=== PATIENT | female | born 1990 | race Caucasian/White ===

== ENCOUNTER 2017-11-20 21:41 | Emergency (ER) ==
[2017-11-20 21:50] VITALS: BMI 28.5
--- NOTE | 2017-11-20 23:02 | CT ---
EXAM: CT chest without intravenous contrast 11/20/2017. Sagittal and coronal reformatted images obt ained HISTORY: Cough COMPARISON: None. FINDINGS: The heart size appears within normal limits. No pericardial effusion. There is no pulmonary consolidation, effusion or pneumothorax. Benign postinflammatory calcifications . Limited views of the upper abdomen shows surgical changes of cholecystectomy. IMPRESSION: No acute cardiopulmonary process.
--- NOTE | 2017-11-21 00:15 | ED.PDOC ---
General ED Provider: Dr. CALEB JEROME-ER Chief Complaint: Cough Stated Complaint: iim coughing--coughing up green yellow stuff Time Seen by Physician: 21:45 Mode of Arrival: Walk-In Information Source: Patient Exam Limitations: No limitations Nursing and Triage Documentation Reviewed and Agree: Yes Reviewed sepsis parameters & appropriate labs ordered?: Yes System Inflammatory Response Syndrome: Not Applicable Sepsis Protocol: For patient's 13 years and over: Temp is 96.8 and below OR 101 and greater Pulse >90 BPM Resp >20/minute Acutely Altered Mental Status Are patient's symptoms suggestive of a new infection, such as: -Pneumonia -Skin, Soft Tissue -Endocarditis -UTI -Bone, Joint Infection -Implantable Device -Acute Abdominal Infection -Wound Infection -Meningitis -Blood Stream Catheter Infection -Unknown Respiratory Complaint Exam - Respiratory Complaint/Exam Onset/Duration: 3 days Symptoms Are: Still present Timing: Constant Initial Severity: Mild Current Severity: Mild Location: Chest Character: Reports: Productive cough Aggravating: Reports: URI Alleviating: Reports: None Associated Signs and Symptoms: Reports: URI, Nasal congestion. Denies: Rapid breathing, Dyspnea, Fever, Chills, Chest pain, Pleuritic chest pain, Wheezing, Hemoptysis, Dizziness, Calf pain, Calf swelling, Edema, Hoarseness Related History: Reports: Similar episode History of Healthcare-Acquired Pneumonia: No Home Oxygen Use: No Recent Stress Test: No Recent Echo/LV Function: No Current Antibiotic Use: No Current Asthma Medication Use: No Respiratory Distress: None Inadequate Respiratory Effort: No Dysphagia Present: No Stridor Present: No JVD Present: No Accessory Muscle Use: No Retractions: Not Present Diminished Breath Sounds: No Sinus Tenderness: None Grunting Respirations: No Kussmaul Respirations: No Differential Diagnoses: Pneumonia, Bronchitis Review of Systems - Review Of Systems Constitutional: Reports: No symptoms Eyes: Reports: No symptoms Ears, Nose, Mouth, Throat: Reports: No symptoms Respiratory: Reports: Cough Cardiac: Reports: No symptoms GI: Reports: No symptoms : Reports: No symptoms Musculoskeletal: Reports: No symptoms Skin: Reports: No symptoms Neurological: Reports: No symptoms Endocrine: Reports: No symptoms Hematologic/Lymphatic: Reports: No symptoms All Other Systems: Reviewed and Negative Past Medical History - Past Medical History Previously Healthy: No Endocrine: Reports: Unknown Cardiovascular: Reports: Unknown Respiratory: Reports: Unknown Hematological: Reports: Unknown Gastrointestinal: Reports: Unknown Genitourinary: Reports: Unknown Neuro/Psych: Reports: Unknown Musculoskeletal: Reports: Unknown Cancer: Reports: Unknown Last Menstrual Period: 11/01/17 - Surgical History General Surgical History: Reports: Unknown - Family History Family History: Reports: Unknown - Social History Smoking Status: Never smoker Hx Substance Use: No Alcohol Screening: Occasionally - Immunizations Tetanus Shot up to Date: No (unsure) Physical Exam - Physical Exam Appearance: Well-appearing, No pain distress, Well-nourished Eyes: STACIA, EOMI, Conjunctiva clear ENT: Ears normal Neck: Supple Respiratory: Rhonchi Cardiovascular: RRR, Pulses normal, No rub, No murmur GI/: Soft Musculoskeletal: Normal strength, ROM intact, No edema, No calf tenderness Skin: Warm, Dry, Normal color Neurological: Sensation intact, Motor intact, Reflexes intact, Cranial nerves intact, Alert, Oriented Psychiatric: Affect appropriate, Mood appropriate Interpretation - Radiology Interpretation Radiology Interpretation By: Radiologist Radiology Results: Negative Exam Interpreted: CT Scan Critical Care Note - Critical Care Note Total Time (mins): 0 Course - Course Hematology/Chemistry: 11/20/17 22:39 11/20/17 22:39 Orders, Labs, Meds: Lab Review 11/20/17 11/20/17 11/20/17 21:55 22:39 22:39 WBC 7.37 RBC 4.34 Hgb 13.5 Hct 39.0 MCV 89.9 MCH 31.1 H MCHC 34.6 RDW Coeff of Roxana 12.3 Plt Count 201 Immature Gran % (Auto) 0.3 Neut % (Auto) 51.9 Lymph % (Auto) 39.1 [place] % (Auto) 6.2 Eos % (Auto) 1.8 Baso % (Auto) 0.7 Immature Gran # (Auto) 0.0 Neut # 3.8 Lymph # 2.9 [place] # 0.5 Eos # 0.1 Baso # 0.1 Sodium 142 Potassium 4.1 Chloride 108 H Carbon Dioxide 26 Anion Gap 12.1 BUN 9 Creatinine 0.84 Estimated GFR (MDRD) 81.00 BUN/Creatinine Ratio 10.71 Glucose 83 Calcium 9.2 Total Bilirubin 1.2 AST 13 L ALT 12 Alkaline Phosphatase 91 Total Protein 7.2 Albumin 3.9 Globulin 3.3 Albumin/Globulin Ratio 1.18 Influenza A (Rapid) Negative by naat Influenza B (Rapid) Negative by naat Orders Category Date Time Status BLOOD CULTURE (ED ONLY) Stat LAB 11/20/17 22:39 Received CBC W/ AUTO DIFF Stat LAB 11/20/17 22:39 Completed CMP [COMPREHENSIVE METABOLIC PANEL] Stat LAB 11/20/17 22:39 Completed FLU A/B MOLECULAR Stat LAB 11/20/17 21:55 Completed MOLECULAR GROUP A STREP Stat LAB 11/20/17 21:[address] CHEST W/O CONTRAST Stat RADS 11/20/17 22:24 Completed Vital Signs: Temp Pulse Resp BP Pulse Ox 11/20/17 21:42 99 F 88 20 119/66 97 Departure - Departure Time of Disposition: 00:14 Disposition: HOME SELF-CARE Discharge Problem: Bronchitis Instructions: Acute Bronchitis (ED) Condition: Good Pt referred to PMD for follow-up: Yes IPMP verified?: No Additional Instructions: biaxin 500mg bid x 10 days--mdp--tessalon perles 200mg tid prn cough #30-- recheck in 72hrs if not better Allergies/Adverse Reactions: Allergies Penicillins Adverse Reaction (Verified 11/20/17 21:49) Difficulty Swallowing Home Medications: Ambulatory Orders 1 [No Reported Medications] 11/20/17 Disposition Discussed With: Patient, Family
[2017-11-21 00:27] VITALS: BP 131/65; TEMP 98.5
== END 2017-11-21 00:22 | disposition home or self-care (01) ==
LOC: ED 21:41
DX: J20.9 Acute bronchitis, unspecified (principal)
CPT/HCPCS: 36415; 80053; 85025; 87040; 87502; 87651; 99283

== ENCOUNTER 2017-12-27 14:07 | Emergency (ER) ==
[2017-12-27 14:14] VITALS: BP 132/81; TEMP 98.7; BMI 28.1
[2017-12-27] MEDS ORDERED: MOTRIN PO STA (14:30)
--- NOTE | 2017-12-27 15:23 | ED.PDOC ---
General ED Provider: Dr. KHADIJAH ARIZA Chief Complaint: Respiratory Complaint Stated Complaint: Patient is a 27 year old who complains of a sore throat for few days. Also state she Jumped from a height and landed flat on her feet. Now has pain on the right fernandez. Time Seen by Physician: 14:30 Mode of Arrival: Walk-In Information Source: Patient Nursing and Triage Documentation Reviewed and Agree: Yes Reviewed sepsis parameters & appropriate labs ordered?: Yes System Inflammatory Response Syndrome: Not Applicable Sepsis Protocol: For patient's 13 years and over: Temp is 96.8 and below OR 101 and greater Pulse >90 BPM Resp >20/minute Acutely Altered Mental Status Are patient's symptoms suggestive of a new infection, such as: -Pneumonia -Skin, Soft Tissue -Endocarditis -UTI -Bone, Joint Infection -Implantable Device -Acute Abdominal Infection -Wound Infection -Meningitis -Blood Stream Catheter Infection -Unknown System Inflammatory Response Syndrome: Not Applicable Review of Systems - Review Of Systems Constitutional: Reports: No symptoms Eyes: Reports: No symptoms Ears, Nose, Mouth, Throat: Reports: No symptoms Respiratory: Reports: No symptoms Cardiac: Reports: No symptoms GI: Reports: No symptoms : Reports: No symptoms Musculoskeletal: Reports: Muscle pain, Muscle stiffness Skin: Reports: No symptoms Neurological: Reports: No symptoms Endocrine: Reports: No symptoms Hematologic/Lymphatic: Reports: No symptoms All Other Systems: Reviewed and Negative Past Medical History - Past Medical History Previously Healthy: No Endocrine: Reports: None Cardiovascular: Reports: Other (hear murmur ) Respiratory: Reports: None Hematological: Reports: Anemia Gastrointestinal: Reports: GERD Genitourinary: Reports: Kidney stones Neuro/Psych: Reports: Migraine Musculoskeletal: Reports: None Cancer: Reports: None Last Menstrual Period: na - Surgical History General Surgical History: Reports: Tubal ligation ( x w ), Cholecystectomy - Family History Family History: Reports: Unknown - Social History Smoking Status: Never smoker Hx Substance Use: No Alcohol Screening: None - Immunizations Tetanus Shot up to Date: No Physical Exam - Physical Exam Appearance: Well-appearing Ill-appearing: Mild Pain Distress: Moderate ENT: Erythema Neck: Supple Respiratory: Airway patent, Breath sounds clear, Breath sounds equal, Respirations nonlabored Cardiovascular: RRR, Pulses normal, No rub, No murmur GI/: Soft, Nontender, No masses, Bowel sounds normal, No Organomegaly Musculoskeletal: Normal strength (tenderness to palpation on the right chin) Skin: Warm, Dry, Normal color Neurological: Sensation intact, Motor intact, Reflexes intact, Cranial nerves intact, Alert, Oriented Psychiatric: Anxious Critical Care Note - Critical Care Note Total Time (mins): 0 Course - Course Orders, Labs, Meds: Orders Category Date Time Status RAPID STREP SCREEN [MOLECULAR GROUP A STREP] Stat LAB 12/27/17 14:20 Completed Ibuprofen [Motrin] MEDS 12/27/17 14:30 Discontinued 800 mg PO ONCE STA TIBIA/FIBULA, RIGHT 2 VIEW Stat RADS 12/27/17 14:31 Taken Medications Discontinued Medications Generic Name Dose Route Start Last Admin Trade Name Freq PRN Reason Stop Dose Admin Ibuprofen 800 mg 12/27/17 14:30 12/27/17 14:43 Motrin PO 12/27/17 14:31 800 mg ONCE STA Administration Vital Signs: Temp Pulse Resp BP Pulse Ox 12/27/17 14:07 98.7 F 72 16 132/81 98 Departure - Departure Time of Disposition: 15:25 Disposition: HOME SELF-CARE Discharge Problem: Fernandez splint Qualifiers: Encounter type: initial encounter Laterality: right Qualified Code(s): S86.891A - Other injury of other muscle(s) and tendon(s) at lower leg level, right leg, initial encounter Pharyngitis Qualifiers: Pharyngitis/tonsillitis etiology: other specified organisms Qualified Code(s): J02.8 - Acute pharyngitis due to other specified organisms Instructions: Pharyngitis (ED), Upper Respiratory Infection (ED) Condition: Fair Pt referred to PMD for follow-up: Yes IPMP verified?: No Additional Instructions: Take Motrin as prescribed Follow up with PCP in 3 days Prescriptions: Ibuprofen [Motrin] 600 mg PO Q6H PRN #30 tablet PRN Reason: Analgesia Allergies/Adverse Reactions: Allergies Penicillins Adverse Reaction (Verified 11/20/17 21:49) Difficulty Swallowing Home Medications: Ambulatory Orders Ibuprofen [Motrin] 600 mg PO Q6H PRN #30 tablet 12/27/17 Disposition Discussed With: Patient
--- NOTE | 2017-12-27 16:13 | DI ---
EXAM: Four views of the right tibia and fibula. History: Right lower leg trauma. Findings: No acute fracture or dislocation. No abnormal calcifications or radiopaque foreign bodies . Joint spaces are preserved. Impression: No acute osseous abnormality
== END 2017-12-27 15:41 | disposition home or self-care (01) ==
LOC: ED 14:07
DX: S86.891A Other injury of other muscle(s) and tendon(s) at lower leg level, right leg, initial encounter (principal); J02.9 Acute pharyngitis, unspecified; X50.1XXA Overexertion from prolonged static or awkward postures, initial encounter
CPT/HCPCS: 87651; 99283

== ENCOUNTER 2018-05-24 02:41 | Emergency (ER) ==
[2018-05-24 02:59] VITALS: BP 132/81; TEMP 99.5; BMI 27.2
[2018-05-24] MEDS ORDERED: ZOFRAN 4 MG/2 ML IVP STA (03:08)
[2018-05-24] MEDS ORDERED: SODIUM CHLORIDE 1,000 ML IV STA ×2 (03:08)
--- NOTE | 2018-05-24 04:59 | CT ---
EXAM: CT of the abdomen and pelvis without contrast. HISTORY: Vomiting. PROCEDURE: Contiguous axial CT images of the abdomen and pelvis without contrast with coronal and sa gittal reformats. FINDINGS: The liver is normal in appearance. The gallbladder is surgically absent. The pancreas, sp eryn and adrenal glands are normal in appearance. There are nonobstructive calcifications in both ki dneys measuring up to 2 mm. The abdominal aorta is normal in appearance. The visualized loops of chary l and appendix are normal in appearance. No free fluid or free air in the abdomen or pelvis. The leo dder is minimally filled with no abnormality identified. The uterus is unremarkable. There are surgi matt clips in the bilateral adnexa. The bones and soft tissues are unremarkable. Impression: Nonobstructive bilateral nephrolithiasis as described. Cholecystectomy.
--- NOTE | 2018-05-24 05:29 | ED.PDOC ---
General ED Provider: Dr. CALEB JEROME-ER Chief Complaint: Nausea/Vomiting Stated Complaint: nat been vomiting all day Time Seen by Physician: 02:45 Mode of Arrival: Walk-In Information Source: Patient Exam Limitations: No limitations Nursing and Triage Documentation Reviewed and Agree: Yes Does patient meet sepsis criteria?: No System Inflammatory Response Syndrome: Not Applicable Sepsis Protocol: For patient's 13 years and over: Temp is 96.8 and below OR 101 and greater Pulse >90 BPM Resp >20/minute Acutely Altered Mental Status Are patient's symptoms suggestive of a new infection, such as: -Pneumonia -Skin, Soft Tissue -Endocarditis -UTI -Bone, Joint Infection -Implantable Device -Acute Abdominal Infection -Wound Infection -Meningitis -Blood Stream Catheter Infection -Unknown GI Complaint Exam - Vomiting/Diarrhea Complaint/Exam Onset/Duration: 24 hrs Symptoms Are: Still present Initial Severity: Mild Current Severity: Moderate Character of Vomiting: Reports: Non-bilious Aggravating: Reports: Food Alleviating: Reports: None Associated Signs and Symptoms: Denies: Dizziness, Light-headedness, Melena, Hematemesis, Fever, Abdominal pain, Cramping Kussmaul Respirations Present: No Differential Diagnoses: Bowel Obstruction, Dehydration, Viral Gastroenteritis Review of Systems - Review Of Systems Constitutional: Reports: No symptoms Eyes: Reports: No symptoms Ears, Nose, Mouth, Throat: Reports: No symptoms Respiratory: Reports: No symptoms Cardiac: Reports: No symptoms GI: Reports: Nausea, Vomiting : Reports: No symptoms Musculoskeletal: Reports: No symptoms Skin: Reports: No symptoms Neurological: Reports: No symptoms Endocrine: Reports: No symptoms Hematologic/Lymphatic: Reports: No symptoms All Other Systems: Reviewed and Negative Past Medical History - Past Medical History Previously Healthy: No Endocrine: Reports: None Cardiovascular: Reports: Other (hear murmur ) Respiratory: Reports: None Hematological: Reports: Anemia Gastrointestinal: Reports: GERD Genitourinary: Reports: Kidney stones Neuro/Psych: Reports: Migraine Musculoskeletal: Reports: None Cancer: Reports: None Last Menstrual Period: LAST WEEK - Surgical History General Surgical History: Reports: Tubal ligation ( x w ), Cholecystectomy - Family History Family History: Reports: Unknown - Social History Smoking Status: Never smoker Hx Substance Use: No Alcohol Screening: Occasionally - Immunizations Tetanus Shot up to Date: No Physical Exam - Physical Exam Appearance: Well-appearing, No pain distress, Well-nourished Eyes: STACIA, EOMI, Conjunctiva clear ENT: Ears normal, Nose normal, Oropharynx normal Respiratory: Airway patent, Breath sounds clear, Breath sounds equal, Respirations nonlabored Cardiovascular: RRR, Pulses normal, No rub, No murmur GI/: Soft, Nontender, No masses, Bowel sounds normal, No Organomegaly Musculoskeletal: Normal strength, ROM intact, No edema, No calf tenderness Skin: Warm, Dry, Normal color Neurological: Sensation intact, Motor intact, Reflexes intact, Cranial nerves intact, Alert, Oriented Psychiatric: Affect appropriate, Mood appropriate Interpretation - Radiology Interpretation Radiology Interpretation By: Radiologist Radiology Results: Negative Exam Interpreted: CT Scan Re-Evaluation - Re-Evaluation Time of Re-Evaluation: 05:28 Status: Improved Vital Signs Stable: Yes Pain Level: 0 Appearance: NAD Lungs: Clear Skin: Warm and Dry Neuro: Alert and Oriented X3 CV: RRR Additional Comments: nausea resolved Critical Care Note - Critical Care Note Total Time (mins): 0 Course - Course Hematology/Chemistry: 05/24/18 03:20 05/24/18 03:20 Orders, Labs, Meds: Lab Review 05/24/18 05/24/18 05/24/18 03:00 03:20 03:20 WBC 9.37 RBC 4.45 Hgb 13.8 Hct 39.3 MCV 88.3 MCH 31.0 MCHC 35.1 RDW Coeff of Roxana 12.0 Plt Count 210 Immature Gran % (Auto) 0.2 Neut % (Auto) 78.4 Lymph % (Auto) 17.4 [place] % (Auto) 3.4 Eos % (Auto) 0.1 Baso % (Auto) 0.5 Immature Gran # (Auto) 0.0 Neut # (Auto) 7.3 H Lymph # (Auto) 1.6 [place] # (Auto) 0.3 L Eos # (Auto) 0.0 Baso # (Auto) 0.1 Sodium 141 Potassium 3.8 Chloride 108 H Carbon Dioxide 23 Anion Gap 13.8 BUN 6 L Creatinine 0.92 Estimated GFR (MDRD) 73.00 BUN/Creatinine Ratio 6.52 Glucose 91 Calcium 9.9 Total Bilirubin 1.8 H AST 14 L ALT 15 Alkaline Phosphatase 98 Total Protein 7.8 Albumin 4.4 Globulin 3.4 Albumin/Globulin Ratio 1.29 Amylase 28 Lipase 8 Serum , Qual Urine Color Yellow Urine Clarity Clear Urine pH 6.0 Ur Specific [place] 1.010 Urine Protein Negative Urine Glucose (UA) Negative Urine Ketones 1+ Urine Blood Negative Urine Nitrite Negative Urine Bilirubin Negative Urine Urobilinogen 0.2 Ur Leukocyte Esterase Trace Urine Microscopic RBC 0-2 Urine Microscopic WBC 0-2 Ur Squamous Epith Cells 0-2 Urine Bacteria 1+ 05/24/18 03:20 WBC RBC Hgb Hct MCV MCH MCHC RDW Coeff of Roxana Plt Count Immature Gran % (Auto) Neut % (Auto) Lymph % (Auto) [place] % (Auto) Eos % (Auto) Baso % (Auto) Immature Gran # (Auto) Neut # (Auto) Lymph # (Auto) [place] # (Auto) Eos # (Auto) Baso # (Auto) Sodium Potassium Chloride Carbon Dioxide Anion Gap BUN Creatinine Estimated GFR (MDRD) BUN/Creatinine Ratio Glucose Calcium Total Bilirubin AST ALT Alkaline Phosphatase Total Protein Albumin Globulin Albumin/Globulin Ratio Amylase Lipase Serum , Qual Negative Urine Color Urine Clarity Urine pH Ur Specific [place] Urine Protein Urine Glucose (UA) Urine Ketones Urine Blood Urine Nitrite Urine Bilirubin Urine Urobilinogen Ur Leukocyte Esterase Urine Microscopic RBC Urine Microscopic WBC Ur Squamous Epith Cells Urine Bacteria Orders Category Date Time Status IV [ED IV/MEDIPORT/POWERPORT] .ONCE EMERGENCY 05/24/18 03:08 Active AMYLASE Stat LAB 05/24/18 03:20 Completed CBC W/ AUTO DIFF Stat LAB 05/24/18 03:20 Completed COMPREHENSIVE METABOLIC PANEL Stat LAB 05/24/18 03:20 Completed LIPASE Stat LAB 05/24/18 03:20 Completed MOLECULAR GROUP A STREP Stat LAB 05/24/18 03:15 Completed SERUM Stat LAB 05/24/18 03:20 Completed URINALYSIS C & S IF INDICATED Stat LAB 05/24/18 03:00 Completed URINE CULTURE Stat LAB 05/24/18 03:00 Received 0.9 % Sodium Chloride [Saline Flush] MEDS 05/24/18 03:08 Ordered 1 syr IVF PRN PRN Ondansetron HCl/Pf [Zofran 4 mg/2 ml] MEDS 05/24/18 03:08 Discontinued 4 mg IVP ONCE STA Sodium Chloride 0.9% [Sodium Chloride] 1,000 ml MEDS 05/24/18 03:08 Active IV 125 mls/hr Sodium Chloride 0.9% [Sodium Chloride] 1,000 ml MEDS 05/24/18 03:[address] ABDOMEN/PELVIS WO CONTRAST Stat RADS 05/24/18 03:07 Completed Medications Generic Name Dose Route Start Last Admin Trade Name Freq PRN Reason Stop Dose Admin Sodium Chloride 1,000 mls @ 125 mls/hr 05/24/18 03:08 Sodium Chloride IV 05/24/18 11:07 .Q8H STA Sodium Chloride 1 syr 05/24/18 03:08 05/24/18 03:26 Saline Flush IVF 1 syr PRN PRN Administration To flush IV Discontinued Medications Generic Name Dose Route Start Last Admin Trade Name Freq PRN Reason Stop Dose Admin Sodium Chloride 1,000 mls @ 1,000 mls/hr 05/24/18 03:08 05/24/18 03:26 Sodium Chloride IV 05/24/18 04:07 1,000 mls/hr BOLUS STA Administration Ondansetron HCl 4 mg 05/24/18 03:08 05/24/18 03:30 Zofran 4 Mg/2 Ml IVP 05/24/18 03:09 4 mg ONCE STA Administration Vital Signs: Temp Pulse Resp BP Pulse Ox 05/24/18 02:43 99.5 F 90 20 132/81 98 Departure - Departure Time of Disposition: 05:28 Disposition: HOME SELF-CARE Discharge Problem: Enteritis Instructions: Enteritis (ED) Condition: Good Pt referred to PMD for follow-up: Yes IPMP verified?: No Additional Instructions: zofran 4mg q 4hrs prn #4--stop diet pills until u talk to your md Allergies/Adverse Reactions: Allergies Penicillins Adverse Reaction (Verified 05/24/18 02:50) Difficulty Swallowing Home Medications: Ambulatory Orders 1 [No Reported Medications] 05/24/18 Disposition Discussed With: Patient, Family
== END 2018-05-24 05:47 | disposition home or self-care (01) ==
LOC: ED 02:41
DX: K52.9 Noninfective gastroenteritis and colitis, unspecified (principal)
CPT/HCPCS: 36415; 80053; 81001; 82150; 83690; 84703; 85025; 87086; 87651; 96361; 96374; 99283

== ENCOUNTER 2018-12-01 14:03 | Outpatient (CLI) | END 2018-12-01 14:24 | disposition short-term general hospital (02) | LOC: AMBL 14:03 | PROVIDERS: ATTEND Internal Medicine | DX: M54.9 Dorsalgia, unspecified (principal) ==